=== PATIENT | male | born 1960 | race Caucasian/White ===

== ENCOUNTER 2017-03-29 07:22 | Day surgery (SDC) | payer MEDICAID ==
[2017-03-17 08:19] VITALS: BMI 35.8
[2017-03-29] MEDS ORDERED: Gentamicin 160 MG in Sodium Chloride 0.9% 100 ML IVPB ONE (09:00)
[2017-03-29] MEDS ORDERED: Lidocaine 2% Jelly (Uro-Jet) ONE (09:35)
[2017-03-29] MEDS ORDERED: Ciprofloxacin 400mg/200ml D5W 400 MG/200 ML BAG IVPB ONE (09:35)
[2017-03-29] MEDS ORDERED: Lactated Ringer's 1,000 ML IV ONE (09:40)
[2017-03-29] MEDS ORDERED: Propofol 10 mg/ml Inj (20 ML) ONE (09:43)
[2017-03-29] MEDS ORDERED: Midazolam 2 MG/2 ML VIAL ONE (09:43)
[2017-03-29] MEDS ORDERED: HYDROmorphone 0.5 mg/0.5 ml ISec IVP PRN (10:02)
--- NOTE | 2017-03-29 10:36 | PCM.SURG1 ---
Surgeon's Initial Post Op Note - Surgeon's Notes Surgeon: Krystal Instructional Material Director: talya Type of Anesthesia: General LMA Anesthesia Administered By: staff Pre-Operative Diagnosis: BPH/Vincent Operative Findings: same Post-Operative Diagnosis: same Operation Performed: same Specimen/Specimens Removed: na Estimated Blood Loss: EBL {In ML}: 0 Blood Products Given: N/A Drains Used: No Drains Post-Op Condition: Good Date of Surgery/Procedure: 03/29/17 Time of Surgery/Procedure: 10:36
[2017-03-29 12:48] VITALS: RESP 16
[2017-03-29 12:51] VITALS: BP 115/73; PULSE 66; TEMP 97.4; O2SAT 100
--- NOTE | 2017-03-29 18:12 | OP ---
PROCEDURE DATE: 03/29/2017 PREOPERATIVE DIAGNOSES: Benign prostatic hypertrophy with bladder outlet obstructions refractory to medical therapy. POSTOPERATIVE DIAGNOSES: Benign prostatic hypertrophy with bladder outlet obstructions refractory to medical therapy. PROCEDURE: GreenLight laser prostatectomy (TULAPM). SURGEON: Juan Rice MD. FINDINGS: Trilobar hypertrophy of the prostate with significant outlet obstruction compensatory tuberculation of bladder. DESCRIPTION OF PROCEDURE: Prior to the procedure, a detailed informed consent was obtained from the patient. After explaining all risks and complications to the patient and after he consented to accept these risks, he was brought into the room, draped and prepped in the usual manner. A timeout was taken according to the rules and regulations of [facility]. The patient was given prophylactic antibiotics and was cystoscoped with the laser cystoscope. Previous cystoscopic findings were confirmed. The laser resectoscope was inserted as well as a laser fiber and vaporization of the obstructing prostatic tissue was carried from just distal to the bladder neck to just proximal to the verumontanum, both the left lobe, the right lobe, the base tissue and the roof tissue. No injury occurred to the external sphincter verumontanum or ureteral orifices. No bladder injury occurred. Meticulous hemostasis was achieved and there was no bleeding. The bladder was filled and the scope was removed and a #[id number] catheter was inserted. The patient was given detailed instructions by postoperative care and told to followup in our office tomorrow at 3 p.m. for Sparks catheter removal. Juan Rice MD
== END 2017-03-29 12:48 | disposition home or self-care (01) ==
LOC: C.SDS 07:22
PROVIDERS: ATTEND Urology
DX: N40.1 Benign prostatic hyperplasia with lower urinary tract symptoms (principal)
CPT/HCPCS: 52648; J0744; J1170; J1580; J7120

== ENCOUNTER 2018-08-18 14:08 | Observation (INO) | payer MEDICAID | END 2018-08-21 14:00 | disposition home or self-care (01) | LOC: C.ER 14:08 → C.9E 17:05 → C.6T 17:34 | DX: R55 Syncope and collapse (principal); I45.10 Unspecified right bundle-branch block; I10 Essential (primary) hypertension; G47.30 Sleep apnea, unspecified; N40.0 Benign prostatic hyperplasia without lower urinary tract symptoms; Z87.891 Personal history of nicotine dependence; Z79.82 Long term (current) use of aspirin ==